=== PATIENT | female | born 1990 | race Caucasian/White ===

== ENCOUNTER 2021-07-27 16:02 | Inpatient (IN) ==
[2021-07-27] MEDS ORDERED: Labetalol IV 5 MG/ML 20 ml VIAL ONE (16:46)
[2021-07-27] MEDS ORDERED: Buffered Lidocaine 1% SYRIN 1 ml INTRADERM ONE (16:57)
[2021-07-27] MEDS ORDERED: Magnesium Sulfate OB PREMIX 4 GM/100 ML BAG IV ONE (16:57)
[2021-07-27] MEDS ORDERED: Lactated Ringers 1000 ml BAG 1,000 ML IV ONE ×2 (16:57→23:07)
[2021-07-27] MEDS ORDERED: Calcium Gluconate 1 GM/10 ML VIAL (in Pyxis) IV PUSH PRN (16:57)
[2021-07-27] MEDS ORDERED: Magnesium Sulfate OB PREMIX 40 GM/1,000 ML BAG IVPB SCH (17:00)
[2021-07-27] MEDS ORDERED: Lactated Ringers 1000 ml BAG 1,000 ML IV SCH ×3 (17:00→23:45)
[2021-07-27 17:03] LABS: Hematocrit 32 % (35-47); Hemoglobin 10.5 g/dL (12.0-16.0); Mean Corpuscular HGB Conc 33 g/dL (31-36); Mean Corpuscular Hemoglobin 32 pg (27-31); Mean Corpuscular Volume 97 fL (80-97); Mean Platelet Volume 12.6 fL (7.4-10.4); Platelet Count 121 10^3/uL (150-450); Red Blood Count 3.25 10^6 /uL (3.70-4.87); Red Cell Distribution Width 17 % (10-15); White Blood Count 6.6 10^3/uL (3.5-10.8)
[2021-07-27 17:04] LABS: Urine Appearance Cloudy; Urine Bilirubin Negative (Negative); Urine Blood Negative (Negative); Urine Color Yellow; Urine Glucose Negative (Negative); Urine Ketones Negative (Negative); Urine Nitrite Negative (Negative); Urine Protein 2+(100 mg/dL) (Negative); Urine Specific Gravity 1.006 (1.002-1.030); Urine Urobilinogen Negative (Negative)
[2021-07-27] MEDS ORDERED: Labetalol IV 5 MG/ML 20 ml VIAL IV PUSH ONE ×4 (17:11→19:13)
[2021-07-27 17:14] LABS: Urine Bacteria 2+ (Absent); Urine Red Blood Cell 1+(3-5/hpf) (Absent); Urine Squamous Epithelial Cell Present (Absent); Urine White Blood Cell 2+(11-20/hpf) (Absent)
[2021-07-27 17:25] LABS: Urine Benzodiazepine Screen None Detected (None Detect); Urine Cannabinoids Screen None Detected (None Detect); Urine Opiates Screen None Detected (None Detect)
[2021-07-27 17:37] LABS: Albumin 2.7 g/dL (3.2-5.2); Albumin/Globulin Ratio 1.1 (1-3); Calcium 7.7 mg/dL (8.6-10.3); Globulin 2.5 g/dL (2-4); Potassium 3.8 mmol/L (3.5-5.0); Total Bilirubin 0.3 mg/dL (0.2-1.0); Total Protein 5.2 g/dL (6.4-8.9); Uric Acid 7.5 mg/dL (2.3-6.6); eGFR CKD-EPI 70.8 (>60)
[2021-07-27] MEDS ORDERED: Saline NASAL DROPS 0.65% BTL BOTH NARES PRN (18:05)
[2021-07-27] MEDS ORDERED: Saline NASAL SPRAY 0.65% BTL BOTH NARES PRN (18:08)
[2021-07-27] MEDS ORDERED: Oxytocin in LR 20 UNITS/1,000 ML BAG IVPB SCH (19:00)
[2021-07-27] MEDS ORDERED: hydrALAZINE 20 mg/ml 1 ML Vial IV IV SLOW PU ONE (20:35)
[2021-07-27 21:00] LABS: Urine Appearance Cloudy; Urine Bilirubin Negative (Negative); Urine Blood 2+ (Negative); Urine Color Straw; Urine Glucose Negative (Negative); Urine Ketones Negative (Negative); Urine Nitrite Negative (Negative); Urine Protein 2+(100 mg/dL) (Negative); Urine Specific Gravity 1.005 (1.002-1.030); Urine Urobilinogen Negative (Negative)
[2021-07-27 21:11] LABS: Urine Benzodiazepine Screen None Detected (None Detect); Urine Cannabinoids Screen None Detected (None Detect); Urine Opiates Screen None Detected (None Detect)
[2021-07-27 21:14] LABS: Urine Bacteria 1+ (Absent); Urine Red Blood Cell 2+(6-10/hpf) (Absent); Urine Squamous Epithelial Cell Present (Absent); Urine White Blood Cell Trace(0-5/hpf) (Absent)
[2021-07-27] MEDS ORDERED: EPHEDrine (Pressors) 50 MG/ML VIAL IV PUSH PRN ×2 (23:07)
[2021-07-27] MEDS ORDERED: Phenylephrine 40 mcg/mL 10mL (400mcg) SYRINGE IV PUSH PRN ×2 (23:07)
[2021-07-27] MEDS ORDERED: Sodium Citrate/Citric Acid LIQ 15 ML UDC PO PRN (23:07)
[2021-07-27] MEDS ORDERED: Lactated Ringers 1000 ml BAG 500 ML IV PRN (23:07)
[2021-07-27 23:08] LABS: ABS Lymphocytes 1.6 10^3/ul (1.0-4.8); ABS Monocytes 0.6 10^3/ul (0-0.8); ABS Neutrophils 5.8 10^3/ul (1.5-7.7); Eosinophil % 0.3 %; Hematocrit 31 % (35-47); Hemoglobin 10.2 g/dL (12.0-16.0); Lymphocyte % 20.2 %; Mean Corpuscular HGB Conc 33 g/dL (31-36); Mean Corpuscular Hemoglobin 32 pg (27-31); Mean Corpuscular Volume 95 fL (80-97); Mean Platelet Volume 11.9 fL (7.4-10.4); Nucleated Red Blood Cells % 0.1; Platelet Count 126 10^3/uL (150-450); Red Blood Count 3.24 10^6 /uL (3.70-4.87); Red Cell Distribution Width 16 % (10-15); White Blood Count 8.1 10^3/uL (3.5-10.8)
[2021-07-27] MEDS ORDERED: Lidocaine 2% w/ EPI 1:200,000 MPF 20 ML SDV VIAL ONE (23:19)
[2021-07-27] MEDS ORDERED: Lidocaine 1.5% EPI 1:200,000 30 ML SDV ONE (23:19)
[2021-07-27 23:44] LABS: Albumin 2.7 g/dL (3.2-5.2); Albumin/Globulin Ratio 1.2 (1-3); Calcium 7.8 mg/dL (8.6-10.3); Globulin 2.3 g/dL (2-4); Potassium 3.8 mmol/L (3.5-5.0); Total Bilirubin 0.3 mg/dL (0.2-1.0); Uric Acid 7.5 mg/dL (2.3-6.6)
[2021-07-27] MEDS ORDERED: OBEPIDURAL (200 ML) 200 ML EPIDURAL SCH (23:45)
[2021-07-28] MEDS ORDERED: Ondansetron 4 mg VIAL 2 MG/ML 2 ml VIAL IV ONE (06:26)
[2021-07-28] MEDS ORDERED: Oxytocin in LR 20 UNITS/1,000 ML BAG IVPB SCH ×2 (07:09→15:00)
[2021-07-28] MEDS ORDERED: fentaNYL 100 mcg/2 ml 50 MCG/ML VIAL ONE (12:13)
[2021-07-28] MEDS ORDERED: Chloroprocaine 3% 20 ml VIAL ONE (12:13)
[2021-07-28] MEDS ORDERED: ceFOXitin 2 GM IVPREMIX 2 GM/50 ML BAG IVPB ONE (12:27)
[2021-07-28] MEDS ORDERED: ceFOXitin 2 GM IVPREMIX 2 GM/50 ML BAG ONE (12:27)
[2021-07-28] MEDS ORDERED: Phenylephrine IV 10 MG/ML 1 ml VIAL ONE (12:37)
[2021-07-28] MEDS ORDERED: Glycopyrrolate IV 0.2 MG/ML 1 ML VIAL ONE (12:37)
[2021-07-28] MEDS ORDERED: Oxytocin 10 UNITS/ML 1 ML VIAL ONE ×3 (12:37→13:28)
[2021-07-28] MEDS ORDERED: EPHEDrine (Pressors) 50 MG/ML VIAL ONE ×2 (12:52→13:28)
[2021-07-28] MEDS ORDERED: Morphine PF AMP (0.5MG/ML) 5 MG/10 ML AMP ONE (13:30)
[2021-07-28] MEDS ORDERED: Acetaminophen IV 1 GM/100ML 100 ML IV ONE (13:37)
[2021-07-28] MEDS ORDERED: Ondansetron 4 mg VIAL 2 MG/ML 2 ml VIAL ONE (13:37)
[2021-07-28] MEDS ORDERED: Lidocaine 2% w/ EPI 1:200,000 MPF 20 ML SDV VIAL ONE (13:53)
[2021-07-28] MEDS ORDERED: Metoclopramide 5 MG/ML VIAL (10 mg) ONE (13:53)
[2021-07-28] MEDS ORDERED: Witch Hazel PAD JAR TOPICAL PRN (14:04)
[2021-07-28] MEDS ORDERED: Glycerin ADULT 2.4 gm SUPP PR PRN (14:04)
[2021-07-28] MEDS ORDERED: Dibucaine 1% OINT 28.35 GM TUBE PR PRN (14:04)
[2021-07-28] MEDS ORDERED: Methylergonovine 0.2 mg AMPULE 1 ml AMP IM ONE (14:04)
[2021-07-28] MEDS ORDERED: Lactated Ringers 1000 ml BAG 1,000 ML IV SCH ×2 (15:00→17:00)
[2021-07-28] MEDS ORDERED: Oxytocin 10 UNITS/ML 1 ML VIAL IV SCH (15:00)
[2021-07-28] MEDS ORDERED: Magnesium Sulfate OB PREMIX 40 GM/1,000 ML BAG IVPB SCH (15:28)
[2021-07-28 16:00] LABS: Hematocrit 29 % (35-47); Hemoglobin 9.5 g/dL (12.0-16.0); Mean Corpuscular HGB Conc 32 g/dL (31-36); Mean Corpuscular Hemoglobin 31 pg (27-31); Mean Corpuscular Volume 97 fL (80-97); Mean Platelet Volume 12.4 fL (7.4-10.4); Platelet Count 155 10^3/uL (150-450); Red Blood Count 3.02 10^6 /uL (3.70-4.87); Red Cell Distribution Width 17 % (10-15); White Blood Count 12.5 10^3/uL (3.5-10.8)
[2021-07-28] MEDS ORDERED: Lactated Ringers 1000 ml BAG 1,000 ML IV ONE (16:17)
[2021-07-28] MEDS ORDERED: oxyCODONE/Acetamin 5/325 mg TAB PO PRN (16:24)
[2021-07-28] MEDS ORDERED: Naloxone 0.4 mg VIAL 0.4 mg/ml 1 ml VIAL IV PRN ×2 (16:26→18:49)
[2021-07-28 16:32] LABS: Albumin 2.3 g/dL (3.2-5.2); Calcium 7.2 mg/dL (8.6-10.3); Globulin 2.2 g/dL (2-4); Potassium 4.3 mmol/L (3.5-5.0); Total Bilirubin 0.4 mg/dL (0.2-1.0); Total Protein 4.5 g/dL (6.4-8.9); eGFR CKD-EPI 59.9 (>60)
[2021-07-28] MEDS ORDERED: OBEPIDURAL (200 ML) 200 ML EPIDURAL SCH (17:00)
[2021-07-28] MEDS ORDERED: Metoclopramide 5 MG/ML VIAL (10 mg) IV ONE (17:56)
[2021-07-28] MEDS ORDERED: Naloxone 4 mg VIAL (10 ml) 2 MG in NS 0.9% 250 ml 250 ML IV PRN (18:49)
[2021-07-28] MEDS: Metoclopramide 5 MG/ML VIAL (10 mg) IV PRN (19:31)
[2021-07-28] MEDS: oxyCODONE/Acetamin 5/325 mg TAB PO PRN (23:43)
[2021-07-29] MEDS: oxyCODONE/Acetamin 5/325 mg TAB PO PRN (06:42)
[2021-07-29 08:17] LABS: ABS Lymphocytes 1.5 10^3/ul (1.0-4.8); ABS Neutrophils 11.1 10^3/ul (1.5-7.7); Eosinophil % 0.1 %; Hematocrit 23 % (35-47); Hemoglobin 7.4 g/dL (12.0-16.0); Lymphocyte % 10.8 %; Mean Corpuscular HGB Conc 33 g/dL (31-36); Mean Corpuscular Hemoglobin 31 pg (27-31); Mean Corpuscular Volume 96 fL (80-97); Mean Platelet Volume 11.6 fL (7.4-10.4); Platelet Count 141 10^3/uL (150-450); Red Blood Count 2.36 10^6 /uL (3.70-4.87); Red Cell Distribution Width 17 % (10-15); White Blood Count 13.5 10^3/uL (3.5-10.8)
[2021-07-29 09:18] LABS: Albumin 2.1 g/dL (3.2-5.2); Albumin/Globulin Ratio 1.1 (1-3); Calcium 6.8 mg/dL (8.6-10.3); Globulin 1.9 g/dL (2-4); Potassium 4.1 mmol/L (3.5-5.0); Total Bilirubin 0.3 mg/dL (0.2-1.0); eGFR CKD-EPI 52.6 (>60)
[2021-07-29] MEDS: Metoclopramide 5 MG/ML VIAL (10 mg) IV PRN (10:46)
[2021-07-29] MEDS ORDERED: Iron Sucrose 200 MG in NS 0.9% 100 ml BAG 100 ML IVPB ONE (12:00)
[2021-07-29] MEDS ORDERED: Calcium Carb (TUMS) 500 mg CHEW TAB PO PRN (14:59)
[2021-07-29] MEDS ORDERED: Metoclopramide 5 MG/ML VIAL (10 mg) IV SLOW PU PRN (15:02)
[2021-07-29] MEDS ORDERED: Calcium Carb (TUMS) 500 mg CHEW TAB ONE (15:04)
[2021-07-29] MEDS ORDERED: Metoclopramide 5 MG/ML VIAL (10 mg) ONE (15:04)
[2021-07-29] MEDS: Senna TAB 8.6 mg TAB PO SCH (15:46)
[2021-07-30] MEDS ORDERED: Methylergonovine 0.2 mg AMPULE 1 ml AMP ONE (05:19)
[2021-07-30 06:56] LABS: ABS Lymphocytes 1.6 10^3/ul (1.0-4.8); ABS Neutrophils 10.1 10^3/ul (1.5-7.7); Eosinophil % 0.2 %; Hematocrit 20 % (35-47); Hemoglobin 6.7 g/dL (12.0-16.0); Lymphocyte % 12.6 %; Mean Corpuscular HGB Conc 33 g/dL (31-36); Mean Corpuscular Hemoglobin 32 pg (27-31); Mean Corpuscular Volume 96 fL (80-97); Mean Platelet Volume 10.9 fL (7.4-10.4); Nucleated Red Blood Cells % 0.1; Platelet Count 156 10^3/uL (150-450); Red Blood Count 2.11 10^6 /uL (3.70-4.87); Red Cell Distribution Width 17 % (10-15); White Blood Count 12.7 10^3/uL (3.5-10.8)
[2021-07-30 07:38] LABS: Calcium 7.1 mg/dL (8.6-10.3); Globulin 2.1 g/dL (2-4); Potassium 4.1 mmol/L (3.5-5.0); Total Bilirubin 0.2 mg/dL (0.2-1.0); Total Protein 4.1 g/dL (6.4-8.9); eGFR CKD-EPI 67.7 (>60)
[2021-07-30 16:46] LABS: Hematocrit 23 % (35-47); Hemoglobin 7.5 g/dL (12.0-16.0)
[2021-07-30] MEDS: Senna TAB 8.6 mg TAB PO SCH (16:55)
[2021-07-31] MEDS: Senna TAB 8.6 mg TAB PO SCH (08:57)
[2021-07-31 11:45] LABS: Calcium 7.4 mg/dL (8.6-10.3); Potassium 4.4 mmol/L (3.5-5.0)
[2021-07-31 11:51] LABS: eGFR CKD-EPI 106.7 (>60)
[2021-07-31 12:44] VITALS: BP 148/82
== END 2021-07-31 16:00 | disposition home or self-care (01) | DRG 540 ==
LOC: MCHOBOUT 16:02 → MCHOB 16:59
PROVIDERS: ADMIT Obstetrics & Gynecology; ATTEND Obstetrics & Gynecology